=== PATIENT | female | born 1995 | race African-American/Black ===

== ENCOUNTER 2018-07-29 12:51 | Inpatient (IN) ==
[2018-07-29] MEDS ORDERED: MEPERIDINE 25 MG/1 ML VIAL IV PRN (14:13)
[2018-07-29 15:25] LABS: Basophils % 0.3 % (0.0-0.8); Eosinophils # 0.2 10*3/uL (0.0-0.87); Eosinophils % 1.4 % (0.00-10.9); Hematocrit 37.2 VOL% (35.7-47.0); Immature Granulocytes % 0.3 %; Immature Granulocytes Absolute 0.04 #; Lymphocytes # 4.4 10*3/uL (1.4-4.0); Lymphocytes % 36.8 % (21.3-54.2); Mean Corpuscular HGB Conc 34.9 GM/DL (32-36); Mean Corpuscular Hemoglobin 33 PG (27-34); Mean Corpuscular Volume 94.4 FL (87-102); Mean Platelet Volume 10.3 FL (9.6-12.0); Monocytes # 0.8 10*3/uL (0.11-0.8); Monocytes % 6.5 % (1.7-12.7); NRBC # 0.02 10*3/uL; Neutrophils # 6.6 10*3/uL (1.4-7.4); Neutrophils % 54.7 % (38.7-73.9); Platelet Count 211 T/CUMM (130-400); Red Blood Count 3.94 MC/CUMM (3.8-5.5); Red Cell Distribution Width 13.2 % (9.3-17.3)
[2018-07-29] MEDS ORDERED: miSOPROStol 200 MCG TABLET PO ONE ×2 (16:24→21:37)
[2018-07-29 17:17] LABS: Barbiturates Screen,Urine Negative (Negative); Benzodiazepines Screen,Urine Negative (Negative); Cannabinoid Screen,Urine Negative (Negative); Opiate Screen,Urine Negative (Negative); Phencyclidine Screen,Urine Negative (Negative)
[2018-07-29] MEDS: ONDANSETRON 4 MG/2 ML VIAL IV PRN (21:49)
[2018-07-29] MEDS: LACTATED RINGERS 1,000 ML IV SCH (22:56)
[2018-07-29] MEDS: BUTORPHANOL 2 MG/ML VIAL IV PRN (22:58)
[2018-07-30] MEDS: BUTORPHANOL 2 MG/ML VIAL IV PRN (01:52)
[2018-07-30] MEDS ORDERED: MEPERIDINE 50 MG/1 ML VIAL IV PRN (03:38)
[2018-07-30] MEDS ORDERED: MEPERIDINE 50 MG/1 ML VIAL ONE (03:40)
[2018-07-30] MEDS: ONDANSETRON 4 MG/2 ML VIAL IV PRN (03:44)
[2018-07-30] MEDS ORDERED: OXYTOCIN/LR 20 UNIT/1,000 ML BAG IV ONE ×2 (03:59→05:32)
[2018-07-30] MEDS ORDERED: LIDOCAINE 1% 50 ML VIAL ONE (03:59)
[2018-07-30] MEDS ORDERED: METHYLERGONOVINE 0.2 MG/1 ML AMP ONE (04:00)
[2018-07-30] MEDS ORDERED: miSOPROStol 200 MCG TABLET PO ONE (04:00)
[2018-07-30] MEDS ORDERED: CARBOPROST TROMETHAMINE 250 MCG/ML AMP IM ONE (04:00)
[2018-07-30] MEDS ORDERED: OXYTOCIN/LR 20 UNIT/1,000 ML BAG IV SCH (04:30)
[2018-07-30] MEDS: ceFAZolin 2,000 MG in PREMIX 1 EACH IV SCH ×3 (05:06→21:10)
[2018-07-30] MEDS ORDERED: oxyCODONE/ACETAMINOPHEN 5-325 MG TABLET PO PRN ×2 (09:43)
[2018-07-30] MEDS ORDERED: DIPH/TET/ACEL PERT BOOSTER VACCINE 0.5 ML VIAL IM ONE (09:43)
[2018-07-30] MEDS ORDERED: BISACODYL 10 MG SUPP RECTAL PRN (09:43)
[2018-07-30] MEDS ORDERED: BENZOCAINE 20%/MENTHOL 0.5% SPRAY 56 GM CAN TOP PRN (09:43)
[2018-07-30] MEDS ORDERED: IBUPROFEN 800 MG TABLET PO PRN (09:43)
[2018-07-30] MEDS ORDERED: HYDROCORTISONE 2.5% RECTAL CREAM 30 GM TUBE TOP PRN (09:43)
[2018-07-30] MEDS ORDERED: ACETAMINOPHEN 325 MG TABLET PO PRN (09:43)
[2018-07-30] MEDS: LACTATED RINGERS 1,000 ML IV SCH ×3 (12:15→17:11)
[2018-07-30] MEDS: DOCUSATE SODIUM 100 MG CAPSULE PO SCH (21:10)
[2018-07-30] MEDS ORDERED: ZALEPLON 5 MG CAPSULE PO PRN (21:11)
[2018-07-31 04:18] LABS: Basophils % 0.2 % (0.0-0.8); Eosinophils # 0.2 10*3/uL (0.0-0.87); Eosinophils % 2.7 % (0.00-10.9); Hematocrit 32.8 VOL% (35.7-47.0); Hemoglobin 11.4 GM/DL (12.0-16.0); Immature Granulocytes % 0.2 %; Immature Granulocytes Absolute 0.02 #; Lymphocytes # 4.2 10*3/uL (1.4-4.0); Lymphocytes % 47.1 % (21.3-54.2); Mean Corpuscular HGB Conc 34.8 GM/DL (32-36); Mean Corpuscular Hemoglobin 33 PG (27-34); Mean Corpuscular Volume 94.5 FL (87-102); Mean Platelet Volume 10.6 FL (9.6-12.0); Monocytes # 0.8 10*3/uL (0.11-0.8); Monocytes % 8.3 % (1.7-12.7); Neutrophils # 3.7 10*3/uL (1.4-7.4); Neutrophils % 41.5 % (38.7-73.9); Platelet Count 163 T/CUMM (130-400); Red Blood Count 3.47 MC/CUMM (3.8-5.5); Red Cell Distribution Width 13.5 % (9.3-17.3)
[2018-07-31] MEDS: ceFAZolin 2,000 MG in PREMIX 1 EACH IV SCH (06:12)
[2018-07-31] MEDS ORDERED: MULTIVITAMIN (PRENATAL) TABLET PO SCH (09:00)
[2018-07-31] MEDS: DOCUSATE SODIUM 100 MG CAPSULE PO SCH (09:50)
[2018-07-31 15:42] VITALS: BP 122/69
== END 2018-07-31 17:45 | disposition home or self-care (01) | DRG 560 ==
LOC: N.LDOUT 12:51 → N.LD 12:53 → N.OB 07-31 07:30
PROVIDERS: ADMIT Obstetrics & Gynecology; ATTEND Obstetrics & Gynecology